=== PATIENT | female | born 1960 | race Caucasian/White ===

== ENCOUNTER → 2016-07-14 | Outpatient (CLI) | payer BC ==
--- NOTE | 2016-07-14 19:52 | Diagnostic Imaging Report ---
INDICATION: Digital mammogram bilateral screening. This study was compared to the prior exam of 07/05/15, 06/19/14 and 06/16/13. At this time, there are no current complaints. The current study was also evaluated with a Computer Aided Detection (CAD) system. FINDINGS: The fibroglandular tissue in both breasts is heterogeneously dense. This does limit the sensitivity of this exam. Overall, there does not appear to have been any significant change when compared to the prior study. No primary or secondary sign of malignancy is noted. IMPRESSION: There is no radiographic evidence for malignancy. ACR BI-RADS Category 1: Negative. Result letter will be mailed to the patient. Note: At least 10% of breast cancer is not imaged by mammography. Dictated by: Dictated on workstation # [id number]
== END ==
LOC: RAD 07:27
PROVIDERS: ATTEND Family Medicine
DX: Z12.31 Encounter for screening mammogram for malignant neoplasm of breast (principal)

== ENCOUNTER → 2017-08-07 | Outpatient (CLI) | payer BC ==
--- NOTE | 2017-08-07 18:11 | Diagnostic Imaging Report ---
INDICATION: Routine screening. Comparison is made with prior study from 07/14/2016 and 07/05/2015. The current study was also evaluated with a Computer Aided Detection (CAD) system. FINDINGS: Scattered fibroglandular densities are identified bilaterally. The parenchymal pattern is stable. There are benign calcifications bilaterally. No mass or malignant-appearing microcalcifications are seen. The axillae are unremarkable. IMPRESSION: No mammographic features suspicious for malignancy are identified. ACR BI-RADS Category 2: Benign findings. Result letter will be mailed to the patient. Note: At least 10% of breast cancer is not imaged by mammography. Dictated by: Dictated on workstation # [id number]
== END ==
LOC: RAD 07:22
PROVIDERS: ATTEND Obstetrics & Gynecology
DX: Z12.31 Encounter for screening mammogram for malignant neoplasm of breast (principal)
CPT/HCPCS: 77067

== ENCOUNTER → 2017-12-02 | Outpatient (REF) ==
--- NOTE | 2017-12-02 16:23 | Diagnostic Imaging Report ---
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 TECHNIQUE: PA and lateral views of the chest were obtained. COMPARISON: No previous study is available at this time for comparison. FINDINGS: The heart size and pulmonary vascularity are within normal limits. The lungs are clear bilaterally. IMPRESSION: Unremarkable chest. Dictated by: Dictated on workstation # [id number]
== END | disposition home or self-care (01) ==
LOC: OCC 16:11
PROVIDERS: ATTEND Nurse Practitioner Family
CPT/HCPCS: 71046

== ENCOUNTER → 2018-08-13 | Outpatient (CLI) | payer BC ==
--- NOTE | 2018-08-13 10:32 | Diagnostic Imaging Report ---
INDICATION: Routine screening. COMPARISON: 08/07/2017 and 07/14/2016. TECHNIQUE: 2D and 3D bilateral screening mammography was performed with CAD. FINDINGS: Scattered fibroglandular densities are identified bilaterally. The overall parenchymal pattern appears to be stable. There are scattered benign calcifications. No mass is identified. No malignant appearing microcalcifications are seen. The axillae are unremarkable. IMPRESSION: No mammographic features suspicious for malignancy are identified. ACR BI-RADS Category 2: Benign findings. Result letter will be mailed to the patient. Note: At least 10% of breast cancer is not imaged by mammography. Dictated by: Dictated on workstation # [id number]
== END ==
LOC: RAD 07:22
PROVIDERS: ATTEND Family Medicine
DX: Z12.31 Encounter for screening mammogram for malignant neoplasm of breast (principal)
CPT/HCPCS: 77067

== ENCOUNTER 2019-03-04 13:00 | Outpatient (CLI) | payer BC ==
[~2019-03-04] VITALS: Ht 165.1 cm; Wt 114.3 kg
[2019-03-04] MEDS ORDERED: MV-M1TAB57 PO (15:15)
[2019-03-04] MEDS ORDERED: ATOR20TA66 PO (15:15)
[2019-03-04] MEDS ORDERED: LISI1TAB10 PO (15:15)
[2019-03-04] MEDS ORDERED: TURM538C PO (15:15)
[2019-03-04] MEDS ORDERED: FENO134C PO (15:15)
[2019-03-04] MEDS ORDERED: AMLO10TA7 PO (15:15)
[2019-03-04] MEDS ORDERED: POTA8TAB6 PO (15:15)
[2019-03-04] MEDS ORDERED: MEDR2.5T6 PO (15:15)
[2019-03-04] MEDS ORDERED: OMG1KC PO (15:15)
[2019-03-04] MEDS ORDERED: GARL400T14 PO (15:15)
[2019-03-04] MEDS ORDERED: ESTR1TAB24 PO (15:15)
[2019-03-04] MEDS ORDERED: FURO20TA4 PO (15:15)
[2019-03-04] MEDS ORDERED: CHOL100045 PO (15:15)
== END 2019-03-04 15:17 | disposition home or self-care (01) ==
LOC: PREOP 13:00
PROVIDERS: ATTEND Surgery
DX: Z01.818 Encounter for other preprocedural examination (principal)

== ENCOUNTER → 2019-08-24 | Outpatient (CLI) | payer BC ==
[~2019-08-24] MED LIST: AMLO10TA7 PO; ATOR20TA66 PO; CHOL100045 PO; ESTR1TAB24 PO; FENO134C PO; FURO20TA4 PO; GARL400T14 PO; LISI1TAB26 PO; MEDR2.5T6 PO; MV-M1TAB57 PO; OMG1KC PO; POTA8TAB6 PO; TURM538C PO
--- NOTE | 2019-08-24 09:09 | Diagnostic Imaging Report ---
EXAMINATION: Digital mammogram bilateral screening with CAD. INDICATION: Screening. COMPARISON: This study is compared to the prior exams of 08/13/2018, 08/07/2017, and 07/14/2016. PERSONAL HISTORY: At this time, there are no current complaints. FINDINGS: The fibroglandular tissue in both breasts is heterogeneously dense. This does limit the sensitivity of this exam. Overall, there does not appear to have been any significant change when compared to the prior study. No primary or secondary sign of malignancy is noted. IMPRESSION: There is no radiographic evidence for malignancy. ACR BI-RADS Category 1: Negative. Result letter will be mailed to the patient. Note: At least 10% of breast cancer is not imaged by mammography. Dictated by: Dictated on workstation # [id number]
== END ==
LOC: RAD 07:20
PROVIDERS: ATTEND Obstetrics & Gynecology
DX: Z12.31 Encounter for screening mammogram for malignant neoplasm of breast (principal)
CPT/HCPCS: 77067

== ENCOUNTER → 2021-08-16 | Outpatient (CLI) | payer BC ==
[~2021-08-16] MED LIST changes: +AMLO-251 PO; -AMLO10TA7 PO; -GARL400T14 PO; +GARL400T15 PO; -LISI1TAB26 PO; +LISI1TAB48 PO
--- NOTE | 2021-08-16 10:55 | Diagnostic Imaging Report ---
INDICATION: Routine screening. COMPARISON: 08/24/2019 and 08/13/2018. TECHNIQUE: 2D and 3D bilateral screening mammography was performed with CAD. FINDINGS: Scattered fibroglandular densities are identified bilaterally. There are scattered benign calcifications throughout both breasts. No mass or malignant-appearing microcalcifications are seen. The axillae are unremarkable. IMPRESSION: No mammographic features suspicious for malignancy are identified. ACR BI-RADS Category 2: Benign findings. Result letter will be mailed to the patient. Note: At least 10% of breast cancer is not imaged by mammography. Dictated by: Dictated on workstation # [id number]
== END ==
LOC: RAD 07:30
PROVIDERS: ATTEND Family Medicine
DX: Z12.31 Encounter for screening mammogram for malignant neoplasm of breast (principal)
CPT/HCPCS: 77063; 77067

== ENCOUNTER → 2022-03-13 | Outpatient (CLI) | payer BC ==
[~2022-03-13] MED LIST changes: -FENO134C PO; +FENO134C21 PO
--- NOTE | 2022-03-13 12:47 | Diagnostic Imaging Report ---
KNEE, LEFT, 4 VIEWS OR > INDICATION: Left knee pain COMPARISON: None available. TECHNIQUE: 4 views of left knee FINDINGS: Severe tricompartmental osteoarthritis is most advanced in the medial compartment with complete joint space loss. Tricompartmental osteophytes are noted. No trochlear dysplasia. No subluxation of the patella. No fracture or concerning focal osseous lesion. No knee joint effusion or mineralized bodies. IMPRESSION: Severe osteoarthritis of the left knee. Dictated by: Dictated on workstation # [id number]
== END ==
LOC: ORTHO 09:24
PROVIDERS: ATTEND Orthopaedic Surgery
DX: M17.12 Unilateral primary osteoarthritis, left knee (principal)
CPT/HCPCS: 73564; G0463; 99203

== ENCOUNTER → 2022-04-08 | Outpatient (CLI) | payer BC | LOC: ORTHO 09:42 | PROVIDERS: ATTEND Orthopaedic Surgery | DX: M17.12 Unilateral primary osteoarthritis, left knee (principal) | CPT/HCPCS: 99213 ==

== ENCOUNTER → 2022-08-07 | Outpatient (CLI) | payer BC | LOC: ORTHO 08:45 | PROVIDERS: ATTEND Orthopaedic Surgery | DX: M17.12 Unilateral primary osteoarthritis, left knee (principal); I10 Essential (primary) hypertension; E66.01 Morbid (severe) obesity due to excess calories | CPT/HCPCS: 20610 ==

== ENCOUNTER → 2022-09-04 | Outpatient (CLI) | payer BC ==
--- NOTE | 2022-09-04 10:11 | Diagnostic Imaging Report ---
INDICATION: Routine screening. COMPARISON: 08/16/2021 and 08/24/2019. TECHNIQUE: 2D and 3D bilateral screening mammography was performed with CAD. FINDINGS: Scattered fibroglandular densities are identified bilaterally. The parenchymal pattern is stable. No mass or malignant-appearing microcalcifications are seen. There are scattered benign calcifications. The axillae are unremarkable. IMPRESSION: No mammographic features suspicious for malignancy are identified. ACR BI-RADS Category 2: Benign findings. Result letter will be mailed to the patient. Note: At least 10% of breast cancer is not imaged by mammography. Dictated by: Dictated on workstation # [id number]
== END ==
LOC: RAD 07:13
PROVIDERS: ATTEND Family Medicine
DX: Z12.31 Encounter for screening mammogram for malignant neoplasm of breast (principal)
CPT/HCPCS: 77063; 77067

== ENCOUNTER → 2023-03-12 | Outpatient (CLI) | payer BC | LOC: ORTHO 08:56 | PROVIDERS: ATTEND Orthopaedic Surgery | DX: M17.12 Unilateral primary osteoarthritis, left knee (principal) | CPT/HCPCS: 20610 ==